=== PATIENT | male | born 1960 | race Caucasian/White ===

== ENCOUNTER 2020-11-10 21:02 | Emergency (ER) | payer MEDICAID ==
[~2020-11-10] VITALS: Ht 175.3 cm; Wt 68.0 kg
[2020-11-10 21:02] VITALS: BP_SYST 151
--- NOTE | 2020-11-11 00:01 | NUR ---
Patient sit on the chair on the Hallway with BLS/EMS.
--- NOTE | 2020-11-11 00:09 | NUR ---
SHANI Hernandez at bedside examining patient.
[2020-11-11] MEDS ORDERED: LORazepam 2 MG/ML VIAL IM ONE (00:15)
[2020-11-11] MEDS ORDERED: HALOPERIDOL LACTATE 5 MG/ML VIAL IM ONE (00:15)
[2020-11-11] MEDS ORDERED: BENZTROPINE MESYLATE 2 MG/ 2 ML AMP IM ONE (00:15)
[2020-11-11 00:49] LABS: BASOPHILS % (AUTO) 0.7 % (0.0-2.0); EOSINOPHILS # (AUTO) 0.2 K/uL (0.0-0.4); EOSINOPHILS % (AUTO) 2.5 % (0.0-4.0); HEMATOCRIT 41.8 % (36-54); HEMOGLOBIN 14.6 g/dL (14.0-18.0); LYMPHOCYTES # (AUTO) 1.1 K/uL (1.0-5.5); LYMPHOCYTES % (AUTO) 18.4 % (20.5-51.5); MEAN CORPUSCULAR HEMOGLOBIN 37 pg (27-31); MEAN CORPUSCULAR HGB CONC 35 % (32-36); MEAN CORPUSCULAR VOLUME 106 fL (79.0-98.0); MONOCYTES # (AUTO) 0.5 K/uL (0.0-1.0); MONOCYTES % (AUTO) 8.3 % (1.7-9.3); NEUTROPHILS # (AUTO) 4.2 K/uL (1.8-7.7); NEUTROPHILS % (AUTO) 70.1 % (40.0-70.0); PLATELET COUNT (AUTO) 428 K/uL (130-430); RED BLOOD CELL COUNT(AUTO) 3.94 MIL/uL (4.2-6.2); RED CELL DISTRIBUTION WIDTH 13.6 % (9.0-15.0)
[2020-11-11 00:54] LABS: ANION GAP 6 (5-15); CALCIUM 8.6 mg/dL (8.4-11.0); CHLORIDE 104 mmol/L (98-107); CREATININE 1.29 mg/dL (0.55-1.30); GLUCOSE 111 mg/dL (70-99); POTASSIUM 4.5 mmol/L (3.5-5.1); SODIUM SERUM 141 mmol/L (136-145); UREA NITROGEN, BLOOD 13 mg/dL (8-21)
[2020-11-11 01:00] LABS: ALANINE AMINOTRANSFERASE 27 U/L (12-78); ALBUMIN 3.7 g/dL (3.4-4.8); ASPARTATE AMINOTRANSFERASE 20 U/L (10-37); TOTAL BILIRUBIN 0.4 mg/dL (0.0-1.0)
--- NOTE | 2020-11-11 01:02 | NUR ---
Patient refused treatments and blood drawn and do not want to stay.
[2020-11-11 01:03] LABS: ALCOHOL, BLOOD < 3 mg/dL (<10); GFR AFRICAN AMERICAN 73 mL/min (>90)
[2020-11-11 01:04] LABS: ACETAMINOPHEN 2 ug/mL (1-30)
[2020-11-11 01:37] LABS: CHOLESTEROL 176 mg/dL (<200); TRIGLYCERIDES 175 mg/dL (30-150)
[2020-11-11 01:38] LABS: HDL CHOLESTEROL 46 mg/dL (>45); LDL CHOLESTEROL 102 mg/dL (<100)
[2020-11-11 01:45] VITALS: BP_SYST 151
--- NOTE | 2020-11-11 01:45 | NUR ---
Patient left without sign.
== END 2020-11-11 01:45 | disposition left against medical advice (07) ==
LOC: SED 21:02
DX: F10.129 Alcohol abuse with intoxication, unspecified (principal); Y90.0 Blood alcohol level of less than 20 mg/100 ml
CPT/HCPCS: 36415; 80053; 80061; 83036; 85025; 99283; G0480; G0481; G0482